=== PATIENT | male | born 1965 | race African-American/Black ===

== ENCOUNTER 2018-03-17 12:08 | Inpatient (IN) | payer OTHER ==
[2018-03-17 16:03] VITALS: BMI 25.8
--- NOTE | 2018-03-17 17:27 | HP ---
CIWA Score Nausea/Vomitin-No Nausea/No Vomiting Muscle Tremors: 3 Anxiety: 4-Mod. Anxious/Guarded Agitation: 3 Paroxysmal Sweats: No Perspiration Orientation: 1-Uncertain about Date Tacttile Disturbances: 2-Mild Itch/Numbness/Burn Auditory Disturbances: 0-None Visual Disturbances: 0-None Headache: 0-None Present CIWA-Ar Total Score: 13 - Admission Criteria OASAS Guidelines: Admission for Medically Managed Detox: Requires at least one of the followin. CIWA greater than 12 2. Seizures within the past 24 hours 3. Delirium tremens within the past 24 hours 4. Hallucinations within the past 24 hours 5. Acute intervention needed for co occurring medical disorder 6. Acute intervention needed for co occurring psychiatric disorder 7. Severe withdrawal that cannot be handled at a lower level of care (continued vomiting, continued diarrhea, abnormal vital signs) requiring intravenous medication and/or fluids 8. Admission ROS [facility] Chief Complaint: ETOH WITHDRAWAL SX/ COCAINE DEPENDENCE. Allergies/Adverse Reactions: Allergies Allergy/AdvReac Type Severity Reaction Status Date / Time No Known Allergies Allergy Verified 03/17/18 17:08 History of Present Illness: PATIENT STARTED DRINKING AT AGE 18 AND CURRENTLY DRINKS UP TO 2- 3 PINTS OF LIQUOR DAILY AND SMOKES 100-200 DOLLARS OF CRACK/COCAINE DAILY. PATIENT HAS H/O BINGE DRINKING AND PASSING OUT. RECENTLY WAS TREATED 03/15/18 AT [facility] FOR C/O PALPITATIONS AND CHEST PAIN. PATIENT D/C HOME AFTER EVALUATION AND CARDIAC STUDIES COMPLETED. PATIENT DENIES HX OF SEIZURES. + DRINKS FIRST UPON GETTING UP IN THE MORNING. PMH INCLUDES HIV+ (1994)-NON-COMPLIANT WITH MEDICATIONS, HTN AND SCHIZOPHRENIA. DENIES SI/HI AND SUICIDE ATTEMPTS. Exam Limitations: No Limitations - Ebola screening Have you traveled outside of the country in the last 21 days: No Have you had contact with anyone from an Ebola affected area: No Have you been sick,other than usual withdrawal symptoms: No - Review of Systems Constitutional: Chills, Night Sweats, Changes in sleep EENT: reports: No Symptoms Reported Respiratory: reports: No Symptoms reported Cardiac: reports: No Symptoms Reported GI: reports: Diarrhea, Nausea, Poor Fluid Intake, Vomiting, Abdominal cramping : reports: No Symptoms Reported Musculoskeletal: reports: No Symptoms Reported Integumentary: reports: Dryness Neuro: reports: Headache, Numbness, Tingling, Tremors Endocrine: reports: No Symptoms Reported Hematology: reports: No Symptoms Reported Psychiatric: reports: Anxious, Depressed Patient History - Patient Medical History Hx Anemia: No Hx Asthma: Yes Hx Chronic Obstructive Pulmonary Disease (COPD): No Hx Cancer: No Hx Cardiac Disorders: No Hx Congestive Heart Failure: No Hx Hypertension: Yes (non-compliant with medication) Hx Hypercholesterolemia: No Hx Pacemaker: No HX Cerebrovascular Accident: No Hx Seizures: No Hx Dementia: No Hx Diabetes: No Hx Gastrointestinal Disorders: No Hx Liver Disease: No Hx Genitourinary Disorders: No Hx Sexually Transmitted Disorders: No Hx Renal Disease (ESRD): No Hx Thyroid Disease: No Hx Human Immunodeficiency Virus (HIV): Yes (noncompliant with medications) Hx Hepatitis C: No Hx Depression: No Hx Suicide Attempt: No Hx Bipolar Disorder: No Hx Schizophrenia: Yes - Patient Surgical History Past Surgical History: Yes Hx Orthopedic Surgery: Yes (LEFT ANKLE SURGERY, PIN PLACEMENT, 1999) Anesthesia Reaction: No - PPD History Previous Implant?: No PPD to be Administered?: Yes - Smoking Cessation Smoking history: Current every day smoker Have you smoked in the past 12 months: Yes Aproximately how many cigarettes per day: 5 Hx Chewing Tobacco Use: No Initiated information on smoking cessation: Yes 'Breaking Loose' booklet given: 03/17/18 - Substance & Tx. History Hx Alcohol Use: Yes Hx Substance Use: Yes Substance Use Type: Alcohol, Cocaine Hx Substance Use Treatment: Yes - Substances Abused Alcohol Route: Oral Frequency: Daily Amount used: 3 PINT Age of first use: 19 Date of Last Use: 03/17/18 Cocaine Route: Smoking Frequency: Daily Amount used: $2000 Age of first use: 19 Date of Last Use: 03/15/18 Family Disease History - Family Disease History Family Disease History: Heart Disease: Mother Admission Physical Exam BHS - Vital Signs Vital Signs: Vital Signs - 24 hr 03/17/18 16:02 Temperature 96.2 F L Pulse Rate 81 Respiratory 20 Rate Blood Pressure 146/113 H - Physical General Appearance: Yes: Appropriately Dressed, Disheveled, Tremorous, Sweating , Anxious HEENTM: Yes: EOMI, Hearing grossly Normal, Normocephalic, Normal Voice, ANITA, Pharynx Normal Respiratory: Yes: Chest Non-Tender, Lungs Clear, Normal Breath Sounds, No Respiratory Distress, No Accessory Muscle Use Neck: Yes: No masses,lesions,Nodules, Supple, Trachea in good position Breast: Yes: Breast Exam Deferred Cardiology: Yes: Regular Rhythm, Regular Rate, S1, S2 Abdominal: Yes: Normal Bowel Sounds, Non Tender, Soft Genitourinary: Yes: Within Normal Limits Back: Yes: Normal Inspection Musculoskeletal: Yes: full range of Motion, Gait Steady Extremities: Yes: Normal Inspection, Normal Range of Motion, Non-Tender, Tremors Neurological: Yes: superintendent greens II-XII NML intact, Fully Oriented, Alert, Motor Strength 5/5, Normal Response, Depressed Affect Integumentary: Yes: Normal Color, Dry, Warm Lymphatic: Yes: Within Normal Limits - Diagnostic (1) Alcohol dependence with uncomplicated withdrawal Current Visit: Yes Status: Acute (2) HTN (hypertension) Current Visit: Yes Status: Chronic Qualifiers: Hypertension type: unspecified Qualified Code(s): I10 - Essential (primary ) hypertension (3) Cocaine dependence Current Visit: Yes Status: Chronic Qualifiers: Substance use status: uncomplicated Qualified Code(s): F14.20 - Cocaine dependence, uncomplicated (4) Tobacco dependence Current Visit: Yes Status: Chronic (5) HIV positive Current Visit: Yes Status: Chronic Cleared for Admission [facility] - Detox or Rehab [facility] Level of Care: Medically Managed Detox Regimen/Protocol: Librium [facility] Breath Alcohol Content Breath Alcohol Content: 0 Urine Drug Screen - Results Drug Screen Negative: No Urine Drug Screen Results: HAWA-Cocaine
[2018-03-17] MEDS ORDERED: hydrOXYzine PAMOATE 50 MG CAPSULE (FP) PO PRN (17:34)
[2018-03-17] MEDS ORDERED: P-EPHED 60MG/TRIPROLIDI 2.5MG TABLET PO PRN (17:34)
[2018-03-17] MEDS ORDERED: guaiFENesin/D-METHORPHAN HB 10 ML UNIT-DOSE CUPS PO PRN (17:34)
[2018-03-17] MEDS ORDERED: ACETAMINOPHEN 325 MG TABLET (FP) PO PRN (17:34)
[2018-03-17] MEDS ORDERED: MENTHOL/PHENOL 1 EACH UD MM PRN (17:34)
[2018-03-17] MEDS ORDERED: NICOTINE POLACRILEX 2 MG GUM BC PRN (17:34)
[2018-03-17] MEDS ORDERED: IBUPROFEN 400 MG TABLET (FP) PO PRN (17:34)
[2018-03-17] MEDS ORDERED: MAGNESIUM CITRATE 300 ML BOTTLE PO PRN (17:34)
[2018-03-17] MEDS ORDERED: MAGNESIUM HYDROX 2400MG/30ML ORAL SUSPENSION 30 ML CUP PO PRN (17:34)
[2018-03-17] MEDS ORDERED: LOPERAMIDE HCL 2 MG CAPSULE PO PRN (17:34)
[2018-03-17] MEDS ORDERED: MAG HYDROX/AL HYDROX/SIMETH 30 ML UNIT-DOSE CUP PO PRN (17:34)
[2018-03-17] MEDS: chlordiazePOXIDE HCL 25 MG CAPSULE PO PRN (18:37)
[2018-03-17] MEDS ORDERED: cloNIDine HCL 0.1 MG TABLET PO ONE (19:30)
--- NOTE | 2018-03-17 19:46 | PN ---
BHS Progress Note Note: Patient hx indicates Norvasc 20 mg Po Daily, however max dose is 10 mg. Will prescribe 10 mg. Patient to f/u w/PCP.
--- NOTE | 2018-03-17 19:58 | PN ---
[facility] Progress Note Note: Pt states he has a h/o asthma and needs a pump- though not documented at admission- MDI ordered
[2018-03-17] MEDS: ALBUTEROL SO4 8 GM HFA INHALER IH PRN (20:18)
[2018-03-17] MEDS ORDERED: MELATONIN 5 MG TABLETS PO PRN (22:00)
[2018-03-17] MEDS: THIAMINE HCL 100 MG TABLET (FP) PO SCH (22:09)
[2018-03-17] MEDS: chlordiazePOXIDE HCL 25 MG CAPSULE PO SCH (22:09)
[2018-03-18] MEDS: ALBUTEROL SO4 8 GM HFA INHALER IH PRN ×3 (01:09→10:44)
[2018-03-18] MEDS: ALBUTEROL SO4 2.5/IPRATROPIUM 0.5 INH SOL 3 ML VIAL.NEB. NEB PRN ×2 (05:00→16:42)
[2018-03-18] MEDS: chlordiazePOXIDE HCL 25 MG CAPSULE PO SCH ×4 (05:39→22:01)
--- NOTE | 2018-03-18 07:47 | PN ---
S Progress Note Note: Patient's blood pressure is B/P 147/114. Patient is asymptomatic Vital Signs Temperature 97.2 F L 03/18/18 06:35 Pulse Rate 98 H 03/18/18 07:36 Respiratory Rate 18 03/18/18 06:35 Blood Pressure 147/114 H 03/18/18 07:36 O2 Sat by Pulse Oximetry (%) Action; Clonidine 0.1mg tablet oral ordered
[2018-03-18] MEDS ORDERED: cloNIDine HCL 0.1 MG TABLET PO ONE (08:02)
[2018-03-18] MEDS ORDERED: ALBUTEROL SO4 0.083% IH SOL 2.5 MG/3 ML VIAL.NEB. NEB ONE (09:14)
[2018-03-18 09:54] LABS: HEMOGLOBIN 12.7 GM/dL (11.7-16.9); MCHC 32.7 g/dl (32.0-35.9); MEAN PLT VOLUME 9.2 fl (7.5-11.1); PLATELET COUNT 221 K/MM3 (134-434); RBC 3.86 M/mm3 (4.00-5.60); RDW 13.5 % (11.9-15.9); WHITE BLOOD COUNT 6.1 K/mm3 (4.0-10.0)
[2018-03-18] MEDS ORDERED: AZITHROMYCIN 250 MG TABLET PO ONE (10:00)
[2018-03-18] MEDS ORDERED: amLODIPine BESYLATE 10 MG TABLET (FP) PO SCH (10:00)
[2018-03-18 10:15] LABS: ALBUMIN 3.8 g/dl (3.4-5.0); ALK PHOS 72 U/L (45-117); ANION GAP 11 MMOL/L (8-16); BILIRUBIN,TOTAL 0.2 mg/dL (0.2-1); BLOOD UREA NITROGEN 16 mg/dL (7-18); CALCIUM 8.7 mg/dL (8.5-10.1); CHLORIDE 103 mmol/L (98-107); CO2 26 mmol/L (21-32); CREATININE 1.2 mg/dL (0.55-1.3); GLUCOSE,RANDOM 99 mg/dL (74-106); POTASSIUM 3.8 mmol/L (3.5-5.1); SGOT/AST 49 U/L (15-37); SGPT/ALT 43 U/L (13-61); SODIUM 140 mmol/L (136-145); TOT PROT 7.1 g/dl (6.4-8.2)
[2018-03-18] MEDS: PRENATAL VITAMINS W/ FOLIC ACID TABLET (FP) PO SCH (10:17)
[2018-03-18] MEDS: amLODIPine BESYLATE 10 MG TABLET (FP) PO SCH (10:17)
[2018-03-18] MEDS: BUDESONIDE/FORMETEROL FUMARATE 80/4.5 mcg INHALER IH SCH ×2 (10:17→22:04)
[2018-03-18] MEDS: SULFAMETHOXAZOLE/TRIMETHOPRIM 800MG/160MG D.S. TABLET PO SCH (10:17)
[2018-03-18] MEDS: NICOTINE 21 MG/24 HOURS TOPICAL PATCH TD SCH (10:21)
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
--- NOTE | 2018-03-18 11:19 | PN ---
[facility] CIWA - CIWA Score Nausea/Vomitin-No Nausea/No Vomiting Muscle Tremors: 3 Anxiety: 2 Agitation: 1-Slight > Activity Paroxysmal Sweats: 2 Orientation: 1-Uncertain about Date Tacttile Disturbances: 1-Very Mild Itch/Numbness Auditory Disturbances: 0-None Visual Disturbances: 0-None Headache: 1-Very Mild CIWA-Ar Total Score: 11 BHS Progress Note (SOAP) Subjective: mild tremor and sweat long history of asthma copd cigarette smoker Objective: 03/18/18 11:22 Vital Signs Temperature 96.6 F L 03/18/18 09:07 Pulse Rate 85 03/18/18 09:07 Respiratory Rate 18 03/18/18 09:07 Blood Pressure 149/99 03/18/18 09:07 O2 Sat by Pulse Oximetry (%) Laboratory Last Values WBC 6.1 K/mm3 (4.0-10.0) 03/18/18 07:00 RBC 3.86 M/mm3 (4.00-5.60) L 03/18/18 07:00 Hgb 12.7 GM/dL (11.7-16.9) 03/18/18 07:00 Hct 39.0 % (35.4-49) 03/18/18 07:00 MCV 101.0 fl (80-96) H 03/18/18 07:00 MCH 33.0 pg (25.7-33.7) 03/18/18 07:00 MCHC 32.7 g/dl (32.0-35.9) 03/18/18 07:00 RDW 13.5 % (11.9-15.9) 03/18/18 07:00 Plt Count 221 K/MM3 (134-434) 03/18/18 07:00 MPV 9.2 fl (7.5-11.1) 03/18/18 07:00 Sodium 140 mmol/L (136-145) 03/18/18 07:00 Potassium 3.8 mmol/L (3.5-5.1) 03/18/18 07:00 Chloride 103 mmol/L (98-107) 03/18/18 07:00 Carbon Dioxide 26 mmol/L (21-32) 03/18/18 07:00 Anion Gap 11 MMOL/L (8-16) 03/18/18 07:00 BUN 16 mg/dL (7-18) 03/18/18 07:00 Creatinine 1.2 mg/dL (0.55-1.3) 03/18/18 07:00 Creat Clearance w eGFR > 60 (>60) 03/18/18 07:00 Random Glucose 99 mg/dL (74-106) 03/18/18 07:00 Calcium 8.7 mg/dL (8.5-10.1) 03/18/18 07:00 Total Bilirubin 0.2 mg/dL (0.2-1) 03/18/18 07:00 AST 49 U/L (15-37) H 03/18/18 07:00 ALT 43 U/L (13-61) 03/18/18 07:00 Alkaline Phosphatase 72 U/L (45-117) 03/18/18 07:00 Total Protein 7.1 g/dl (6.4-8.2) 03/18/18 07:00 Albumin 3.8 g/dl (3.4-5.0) 03/18/18 07:00 lab noted Assessment: 03/18/18 11:23 alcohol withdrawal sx hypertension asthma smoker Plan: continue detox symbicort + nebulizer + azithromycin amlodipine + metoprolol
[2018-03-18] MEDS ORDERED: PNEUMOC 13-VAL CONJ-DIP CRM/PF 0.5 ML DISP.SYRIN IM ONE (12:00)
[2018-03-18] MEDS ORDERED: FLU VACCINE QUAD 60 MCG/0.5 ML (MDV 18-19) IM ONE (12:00)
[2018-03-18] MEDS: FLUoxetine HCL 20 MG CAPSULE (FP) PO SCH (12:39)
[2018-03-18] MEDS: METOPROLOL TARTRATE 25 MG TABLET (FP) PO SCH ×2 (12:39→22:02)
[2018-03-18] MEDS: THIAMINE HCL 100 MG TABLET (FP) PO SCH (22:02)
[2018-03-18] MEDS: traZODone HCL 50 MG TABLET (FP) PO SCH (22:02)
[2018-03-19] MEDS: chlordiazePOXIDE HCL 25 MG CAPSULE PO SCH ×3 (05:26→17:26)
[2018-03-19] MEDS: AZITHROMYCIN 250 MG TABLET PO SCH (10:30)
[2018-03-19] MEDS: METOPROLOL TARTRATE 25 MG TABLET (FP) PO SCH ×2 (10:30→22:17)
[2018-03-19] MEDS: SULFAMETHOXAZOLE/TRIMETHOPRIM 800MG/160MG D.S. TABLET PO SCH (10:30)
[2018-03-19] MEDS: amLODIPine BESYLATE 10 MG TABLET (FP) PO SCH (10:31)
[2018-03-19] MEDS: PRENATAL VITAMINS W/ FOLIC ACID TABLET (FP) PO SCH (10:31)
[2018-03-19] MEDS: NICOTINE 21 MG/24 HOURS TOPICAL PATCH TD SCH (10:31)
[2018-03-19] MEDS: BUDESONIDE/FORMETEROL FUMARATE 80/4.5 mcg INHALER IH SCH ×2 (10:32→22:16)
[2018-03-19] MEDS: FLUoxetine HCL 20 MG CAPSULE (FP) PO SCH (10:33)
[2018-03-19] MEDS: ALBUTEROL SO4 8 GM HFA INHALER IH PRN ×3 (10:35→16:44)
--- NOTE | 2018-03-19 11:27 | PN ---
S CIWA - CIWA Score Nausea/Vomitin-No Nausea/No Vomiting Muscle Tremors: 3 Anxiety: 2 Agitation: 2 Paroxysmal Sweats: 1-Minimal Palms Moist Orientation: 0-Oriented Tacttile Disturbances: 0-None Auditory Disturbances: 0-None Visual Disturbances: 0-None Headache: 0-None Present CIWA-Ar Total Score: 8 BHS Progress Note (SOAP) Subjective: tremor sweat restlessness anxiety Objective: 03/19/18 11:26 Vital Signs Temperature 96.8 F L 03/19/18 09:33 Pulse Rate 79 03/19/18 09:33 Respiratory Rate 18 03/19/18 09:33 Blood Pressure 137/90 03/19/18 09:33 O2 Sat by Pulse Oximetry (%) Laboratory Last Values WBC 6.1 K/mm3 (4.0-10.0) 03/18/18 07:00 RBC 3.86 M/mm3 (4.00-5.60) L 03/18/18 07:00 Hgb 12.7 GM/dL (11.7-16.9) 03/18/18 07:00 Hct 39.0 % (35.4-49) 03/18/18 07:00 MCV 101.0 fl (80-96) H 03/18/18 07:00 MCH 33.0 pg (25.7-33.7) 03/18/18 07:00 MCHC 32.7 g/dl (32.0-35.9) 03/18/18 07:00 RDW 13.5 % (11.9-15.9) 03/18/18 07:00 Plt Count 221 K/MM3 (134-434) 03/18/18 07:00 MPV 9.2 fl (7.5-11.1) 03/18/18 07:00 Sodium 140 mmol/L (136-145) 03/18/18 07:00 Potassium 3.8 mmol/L (3.5-5.1) 03/18/18 07:00 Chloride 103 mmol/L (98-107) 03/18/18 07:00 Carbon Dioxide 26 mmol/L (21-32) 03/18/18 07:00 Anion Gap 11 MMOL/L (8-16) 03/18/18 07:00 BUN 16 mg/dL (7-18) 03/18/18 07:00 Creatinine 1.2 mg/dL (0.55-1.3) 03/18/18 07:00 Creat Clearance w eGFR > 60 (>60) 03/18/18 07:00 Random Glucose 99 mg/dL (74-106) 03/18/18 07:00 Calcium 8.7 mg/dL (8.5-10.1) 03/18/18 07:00 Total Bilirubin 0.2 mg/dL (0.2-1) 03/18/18 07:00 AST 49 U/L (15-37) H 03/18/18 07:00 ALT 43 U/L (13-61) 03/18/18 07:00 Alkaline Phosphatase 72 U/L (45-117) 03/18/18 07:00 Total Protein 7.1 g/dl (6.4-8.2) 03/18/18 07:00 Albumin 3.8 g/dl (3.4-5.0) 03/18/18 07:00 RPR Titer Nonreactive (NONREACTIVE) 03/18/18 07:00 lab noted Assessment: 03/19/18 11:27 withdrawal sx Plan: continue detox
[2018-03-19] MEDS: ALBUTEROL SO4 2.5/IPRATROPIUM 0.5 INH SOL 3 ML VIAL.NEB. NEB PRN ×2 (12:40→19:50)
[2018-03-19] MEDS: chlordiazePOXIDE HCL 25 MG CAPSULE PO PRN (14:37)
[2018-03-19] MEDS: chlordiazePOXIDE 5 MG CAPSULE PO SCH (22:16)
[2018-03-19] MEDS: THIAMINE HCL 100 MG TABLET (FP) PO SCH (22:17)
[2018-03-19] MEDS: traZODone HCL 50 MG TABLET (FP) PO SCH (22:17)
[2018-03-20] MEDS: chlordiazePOXIDE 5 MG CAPSULE PO SCH ×3 (05:35→18:08)
[2018-03-20] MEDS: amLODIPine BESYLATE 10 MG TABLET (FP) PO SCH (10:55)
[2018-03-20] MEDS: PRENATAL VITAMINS W/ FOLIC ACID TABLET (FP) PO SCH (10:55)
[2018-03-20] MEDS: SULFAMETHOXAZOLE/TRIMETHOPRIM 800MG/160MG D.S. TABLET PO SCH (10:55)
[2018-03-20] MEDS: FLUoxetine HCL 20 MG CAPSULE (FP) PO SCH (10:55)
[2018-03-20] MEDS: AZITHROMYCIN 250 MG TABLET PO SCH (10:55)
[2018-03-20] MEDS: METOPROLOL TARTRATE 25 MG TABLET (FP) PO SCH ×2 (10:57→22:03)
[2018-03-20] MEDS: NICOTINE 21 MG/24 HOURS TOPICAL PATCH TD SCH (10:57)
[2018-03-20] MEDS: BUDESONIDE/FORMETEROL FUMARATE 80/4.5 mcg INHALER IH SCH ×2 (11:00→22:02)
--- NOTE | 2018-03-20 13:33 | PN ---
S Progress Note (SOAP) Subjective: feeling better no tremor no gi distress less sweat Objective: 03/20/18 13:32 Vital Signs Temperature 97.0 F L 03/20/18 08:55 Pulse Rate 74 03/20/18 08:55 Respiratory Rate 18 03/20/18 08:55 Blood Pressure 125/91 03/20/18 08:55 O2 Sat by Pulse Oximetry (%) Laboratory Last Values WBC 6.1 K/mm3 (4.0-10.0) 03/18/18 07:00 RBC 3.86 M/mm3 (4.00-5.60) L 03/18/18 07:00 Hgb 12.7 GM/dL (11.7-16.9) 03/18/18 07:00 Hct 39.0 % (35.4-49) 03/18/18 07:00 MCV 101.0 fl (80-96) H 03/18/18 07:00 MCH 33.0 pg (25.7-33.7) 03/18/18 07:00 MCHC 32.7 g/dl (32.0-35.9) 03/18/18 07:00 RDW 13.5 % (11.9-15.9) 03/18/18 07:00 Plt Count 221 K/MM3 (134-434) 03/18/18 07:00 MPV 9.2 fl (7.5-11.1) 03/18/18 07:00 Sodium 140 mmol/L (136-145) 03/18/18 07:00 Potassium 3.8 mmol/L (3.5-5.1) 03/18/18 07:00 Chloride 103 mmol/L (98-107) 03/18/18 07:00 Carbon Dioxide 26 mmol/L (21-32) 03/18/18 07:00 Anion Gap 11 MMOL/L (8-16) 03/18/18 07:00 BUN 16 mg/dL (7-18) 03/18/18 07:00 Creatinine 1.2 mg/dL (0.55-1.3) 03/18/18 07:00 Creat Clearance w eGFR > 60 (>60) 03/18/18 07:00 Random Glucose 99 mg/dL (74-106) 03/18/18 07:00 Calcium 8.7 mg/dL (8.5-10.1) 03/18/18 07:00 Total Bilirubin 0.2 mg/dL (0.2-1) 03/18/18 07:00 AST 49 U/L (15-37) H 03/18/18 07:00 ALT 43 U/L (13-61) 03/18/18 07:00 Alkaline Phosphatase 72 U/L (45-117) 03/18/18 07:00 Total Protein 7.1 g/dl (6.4-8.2) 03/18/18 07:00 Albumin 3.8 g/dl (3.4-5.0) 03/18/18 07:00 RPR Titer Nonreactive (NONREACTIVE) 03/18/18 07:00 lab noted Assessment: 03/20/18 13:33 mild withdrawal sx Plan: medically supervised detox patient pull security alarm today multidisciplinary approach safety contract signed patient is receptive toward therapeutic environment for withdrawal sx stability
[2018-03-20] MEDS: chlordiazePOXIDE HCL 10 MG CAPSULE PO SCH (22:02)
[2018-03-20] MEDS: THIAMINE HCL 100 MG TABLET (FP) PO SCH (22:03)
[2018-03-20] MEDS: traZODone HCL 50 MG TABLET (FP) PO SCH (22:03)
[2018-03-21] MEDS: chlordiazePOXIDE HCL 10 MG CAPSULE PO SCH ×3 (06:04→18:00)
[2018-03-21] MEDS: ALBUTEROL SO4 2.5/IPRATROPIUM 0.5 INH SOL 3 ML VIAL.NEB. NEB PRN (06:59)
[2018-03-21] MEDS: FLUoxetine HCL 20 MG CAPSULE (FP) PO SCH (09:32)
[2018-03-21] MEDS: AZITHROMYCIN 250 MG TABLET PO SCH (09:33)
[2018-03-21] MEDS: METOPROLOL TARTRATE 25 MG TABLET (FP) PO SCH (09:33)
[2018-03-21] MEDS: NICOTINE 21 MG/24 HOURS TOPICAL PATCH TD SCH (09:33)
[2018-03-21] MEDS: BUDESONIDE/FORMETEROL FUMARATE 80/4.5 mcg INHALER IH SCH (09:33)
[2018-03-21] MEDS: PRENATAL VITAMINS W/ FOLIC ACID TABLET (FP) PO SCH (09:33)
[2018-03-21] MEDS: SULFAMETHOXAZOLE/TRIMETHOPRIM 800MG/160MG D.S. TABLET PO SCH (09:33)
[2018-03-21] MEDS: amLODIPine BESYLATE 10 MG TABLET (FP) PO SCH (09:33)
--- NOTE | 2018-03-21 09:43 | PN ---
BHS Progress Note (SOAP) Subjective: I'M better going to rehab Objective: 03/21/18 09:42 Vital Signs Temperature 97.3 F L 03/21/18 06:00 Pulse Rate 63 03/21/18 06:00 Respiratory Rate 18 03/21/18 06:00 Blood Pressure 133/91 03/21/18 06:00 O2 Sat by Pulse Oximetry (%) Laboratory Tests 03/18/18 03/18/18 03/18/18 07:00 07:00 07:00 WBC 6.1 RBC 3.86 L Hgb 12.7 Hct 39.0 MCV 101.0 H MCH 33.0 MCHC 32.7 RDW 13.5 Plt Count 221 MPV 9.2 Sodium 140 Potassium 3.8 Chloride 103 Carbon Dioxide 26 Anion Gap 11 BUN 16 Creatinine 1.2 Creat Clearance w eGFR > 60 Random Glucose 99 Calcium 8.7 Total Bilirubin 0.2 AST 49 H ALT 43 Alkaline Phosphatase 72 Total Protein 7.1 Albumin 3.8 RPR Titer Nonreactive pt aox3 in nad ambulating well Assessment: 03/21/18 09:42 detox completed Plan: cont. fluids d/c from detox [facility]
--- NOTE | 2018-03-21 09:45 | DS ---
[facility] Detox Discharge Summary Admission Date: 03/17/18 Discharge Date: 03/21/18 - History Present History: Alcohol Dependence, Cocaine Dependence - Physical Exam Results Vital Signs: Vital Signs Temperature 97.3 F L 03/21/18 06:00 Pulse Rate 63 03/21/18 06:00 Respiratory Rate 18 03/21/18 06:00 Blood Pressure 133/91 03/21/18 06:00 O2 Sat by Pulse Oximetry (%) - Treatment Hospital Course: Detox Protocol Followed, Detoxed Safely, Responded well, Discharged Condition Good - Medication Discharge Medications: Ambulatory Orders Amlodipine Besylate [Norvasc -] 20 mg PO DAILY 03/17/18 Dolutegravir Sodium [Tivicay] 50 mg PO DAILY 03/17/18 Fluoxetine HCl [Prozac] 10 mg PO DAILY 03/17/18 Ritonavir [Norvir -] 100 mg PO DAILY 03/17/18 Sulfamethoxazole/Trimethoprim [Bactrim DS -] 1 tab PO DAILY 03/17/18 traZODone HCL [Trazodone HCl] 50 mg PO HS 03/17/18 - Diagnosis (1) Alcohol dependence with uncomplicated withdrawal Current Visit: Yes Status: Chronic (2) Cocaine dependence Current Visit: Yes Status: Chronic Qualifiers: Substance use status: uncomplicated Qualified Code(s): F14.20 - Cocaine dependence, uncomplicated (3) HIV positive Current Visit: Yes Status: Chronic (4) HTN (hypertension) Current Visit: Yes Status: Chronic Qualifiers: Hypertension type: unspecified Qualified Code(s): I10 - Essential (primary ) hypertension (5) Tobacco dependence Current Visit: Yes Status: Chronic - AMA Did Patient Leave Against Medical Advice: No
[2018-03-21 17:58] VITALS: BP 139/97; PULSE 66; TEMP 97.5
[2018-03-21] MEDS: ALBUTEROL SO4 8 GM HFA INHALER IH PRN (18:55)
== END 2018-03-21 19:27 | disposition other institution (70) | DRG 774 ==
LOC: YASAS 12:08 → Y6N 17:57
PROC: HZ2ZZZZ Detoxification Services for Substance Abuse Treatment (ICD-10-PCS; principal; 2018-03-17)
DX: F10.230 Alcohol dependence with withdrawal, uncomplicated (principal); F14.20 Cocaine dependence, uncomplicated; F17.213 Nicotine dependence, cigarettes, with withdrawal; F19.282 Other psychoactive substance dependence with psychoactive substance-induced sleep disorder; F19.24 Other psychoactive substance dependence with psychoactive substance-induced mood disorder; Z21 Asymptomatic human immunodeficiency virus [HIV] infection status; I10 Essential (primary) hypertension; J45.909 Unspecified asthma, uncomplicated; J44.9 Chronic obstructive pulmonary disease, unspecified; Z91.14 Patient's other noncompliance with medication regimen
CPT/HCPCS: 36415; 80053; 85027; 86593; 90670; 90688; 94640; G0008; G0009; J0735

== ENCOUNTER 2018-11-27 08:58 | Inpatient (IN) | payer OTHER ==
[2018-11-27 09:34] VITALS: BMI 25.8
--- NOTE | 2018-11-27 10:33 | HP ---
CIWA Score Nausea/Vomitin-No Nausea/No Vomiting Muscle Tremors: 1-None Visible, but [place] Anxiety: 1-Mildly Anxious Agitation: 0-Normal Activity Paroxysmal Sweats: No Perspiration Orientation: 0-Oriented Tacttile Disturbances: 0-None Auditory Disturbances: 0-None Visual Disturbances: 0-None Headache: 0-None Present CIWA-Ar Total Score: 2 - Admission Criteria OASAS Guidelines: Admission for Medically Managed Detox: Requires at least one of the followin. CIWA greater than 12 2. Seizures within the past 24 hours 3. Delirium tremens within the past 24 hours 4. Hallucinations within the past 24 hours 5. Acute intervention needed for co occurring medical disorder 6. Acute intervention needed for co occurring psychiatric disorder 7. Severe withdrawal that cannot be handled at a lower level of care (continued vomiting, continued diarrhea, abnormal vital signs) requiring intravenous medication and/or fluids 8. Admission ROS S - [facility] Chief Complaint: " I want to be in detox and get my life together" Allergies/Adverse Reactions: Allergies Allergy/AdvReac Type Severity Reaction Status Date / Time No Known Allergies Allergy Verified 11/27/18 09:13 History of Present Illness: Patient is a 53 year old black male with alcohol dependence, cocain use and marijuana use disorder. Patient states he is drinking 2-3 beers per day, last drank last night. Patient using marijuana daily about $20 per day, Patient using cocaine daily for past 5 days, $20 per day. Patient is smokes ciggarettes about 1/2 PPD, for over 20 years. Last admission was in 03/2018 and he completed detox and rehab and was abstinent for a while. He relapsed in July 2018 and was in stressful relationship. PMHx: HIV Disease and HTN but poorly compliant with both medications Psurg Hx: L Ankle surgery and pins Patient denies any other substances of abuse. Patient denies any legal issues pending. Patient is not homeless, domiciled in the [place]. Exam Limitations: No Limitations - Ebola screening Have you traveled outside of the country in the last 21 days: No Have you had contact with anyone from an Ebola affected area: No Have you been sick,other than usual withdrawal symptoms: No Do you have a fever: No - Review of Systems Constitutional: No Symptoms Reported EENT: reports: No Symptoms Reported Respiratory: reports: No Symptoms reported Cardiac: reports: No Symptoms Reported GI: reports: Diarrhea : reports: No Symptoms Reported Musculoskeletal: reports: No Symptoms Reported, Other (slightly swollen right leg) Integumentary: reports: No Symptoms Reported Neuro: reports: No Symptoms reported Endocrine: reports: No Symptoms Reported Hematology: reports: No Symptoms Reported Psychiatric: reports: Judgement Intact, Mood/Affect Appropiate, Orientated x3 Other Systems: Reviewed and Negative Patient History - Patient Medical History Hx Anemia: No Hx Asthma: Yes (symbicort, albuterol) Hx Chronic Obstructive Pulmonary Disease (COPD): No Hx Cancer: No Hx Cardiac Disorders: No Hx Congestive Heart Failure: No Hx Hypertension: Yes (on norvasc) Hx Hypercholesterolemia: No Hx Pacemaker: No HX Cerebrovascular Accident: No Hx Seizures: No Hx Dementia: No Hx Diabetes: No Hx Gastrointestinal Disorders: No Hx Liver Disease: No Hx Genitourinary Disorders: No Hx Sexually Transmitted Disorders: Yes Hx Renal Disease (ESRD): No Hx Thyroid Disease: No Hx Human Immunodeficiency Virus (HIV): Yes (noncompliant with medications) Hx Hepatitis C: No Hx Depression: Yes Hx Suicide Attempt: No Hx Bipolar Disorder: No Hx Schizophrenia: Yes - Patient Surgical History Past Surgical History: Yes Hx Orthopedic Surgery: Yes (LEFT ANKLE SURGERY, PIN PLACEMENT, 1999) Anesthesia Reaction: No - PPD History Previous Implant?: Yes Documented Results: Negative w/proof Implanted On Prior R Admission?: Yes Date: 03/19/18 Results: 00.00 PPD to be Administered?: No - Reproductive History Patient is a Female of Child Bearing Age (11 -55 yrs old): No - Smoking Cessation Smoking history: Current every day smoker Have you smoked in the past 12 months: Yes Aproximately how many cigarettes per day: 5 Hx Chewing Tobacco Use: No Initiated information on smoking cessation: Yes 'Breaking Loose' booklet given: 11/27/18 - Substances abused Alcohol Substance route: Oral Frequency: 3-6 times per week Amount used: 40 oz 12 pack Age of first use: 17 Date of last use: 11/26/18 Family Disease History - Family Disease History Family Disease History: Heart Disease: Mother (alive but heart disease), Other: Father (unknown), Brother (1 brother, alive and well), Sister (, alive and well) , Son (1 son alive and well), Daughter (3 daughters alive and well) Admission Physical Exam [facility] - Vital Signs Vital Signs: Vital Signs - 24 hr 11/27/18 09:13 Temperature 97.0 F L Pulse Rate 69 Respiratory 16 Rate Blood Pressure 121/86 Cleared for Admission [facility] - Detox or Rehab [facility] Level of Care: Medically Managed Claeared for Rehab Admission: Yes Screened but not Admitted - Documentation of Visit Screened but not Admitted: No Breathalyzer - Breathalyzer Breathalyzer: 0 Vital Signs - Vital Signs Vital signs refused: No Temperature: 97.0 F Temperature source: Oral Pulse Rate: 69 Respiratory Rate: 16 Blood Pressure: 121/86 BP Location: Left Arm Blood Pressure position: Sitting - Height Height: 5 ft 8 in - Weight Weight: 170 lb Weight measurement method: Standing scale - BMI Body Mass Index (BMI): 25.8 - Bowel Function Bowel Movement: Yes Urine Drug Screen - Test Device Lot number: [id number] Expiration date: 08/13/19 - Control Is test valid?: Yes - Results Drug screen NEGATIVE: No Urine drug screen results: THC-Marijuana, HAWA-Cocaine Inpatient Rehab Admission - Rehab Decision to Admit Inpatient rehab admission?: Yes - Initial Determination Are CD services needed?: Yes Free of communicable disease: Yes Not in need of hospitalization: Yes - Rehab Admission Criteria Previous failed treatment: Yes Poor recovery environment: Yes Comorbidities: Yes Lacks judgement: Yes Patient is meeting Inpatient Rehab admission criteria:: Yes
[2018-11-27] MEDS ORDERED: ACETAMINOPHEN 325 MG TABLET (FP) PO PRN (10:48)
[2018-11-27] MEDS ORDERED: P-EPHED 60MG/TRIPROLIDI 2.5MG TABLET PO PRN (10:48)
[2018-11-27] MEDS ORDERED: LOPERAMIDE HCL 2 MG CAPSULE PO PRN (10:48)
[2018-11-27] MEDS ORDERED: MENTHOL/PHENOL 1 EACH UD MM PRN (10:48)
[2018-11-27] MEDS ORDERED: MAGNESIUM CITRATE 300 ML BOTTLE PO PRN (10:48)
[2018-11-27] MEDS ORDERED: IBUPROFEN 400 MG TABLET (FP) PO PRN (10:48)
[2018-11-27] MEDS ORDERED: MAG HYDROX/AL HYDROX/SIMETH 30 ML UNIT-DOSE CUP PO PRN (10:48)
[2018-11-27] MEDS: NICOTINE 7 MG/24 HOURS TOPICAL PATCH TD SCH (12:59)
[2018-11-27 14:51] LABS: HEMATOCRIT 36.5 % (35.4-49); HEMOGLOBIN 12.2 GM/dL (11.7-16.9); MCH 33.4 pg (25.7-33.7); MCHC 33.4 g/dl (32.0-35.9); MEAN PLT VOLUME 9.3 fl (7.5-11.1); PLATELET COUNT 263 K/MM3 (134-434); RBC 3.65 M/mm3 (4.00-5.60); RDW 13.1 % (11.9-15.9); WHITE BLOOD COUNT 5.1 K/mm3 (4.0-10.0)
[2018-11-27 15:11] LABS: ALBUMIN 3.8 g/dl (3.4-5.0); BILIRUBIN,TOTAL 0.2 mg/dL (0.2-1); BLOOD UREA NITROGEN 26.4 mg/dL (7-18); CALCIUM 9.4 mg/dL (8.5-10.1); CREATININE 1.7 mg/dL (0.55-1.3); POTASSIUM 3.1 mmol/L (3.5-5.1); TOT PROT 7.5 g/dl (6.4-8.2)
[2018-11-27] MEDS ORDERED: POTASSIUM CHLORIDE TABS 20 MEQ TABLET.ER (FP) PO ONE (17:15)
[2018-11-27 17:17] LABS: URINE APPEARANCE CLEAR; URINE BILIRUBIN NEGATIVE (NEGATIVE); URINE COLOR YELLOW; URINE GLUCOSE (UA) NEGATIVE (NEGATIVE); URINE KETONE NEGATIVE (NEGATIVE); URINE LEUK ESTERASE NEGATIVE (NEGATIVE); URINE NITRITE NEGATIVE (NEGATIVE); URINE PROTEIN NEGATIVE (NEGATIVE); URINE UROBILINOGEN 0.2 mg/dL (0.2-1.0)
[2018-11-27] MEDS: THIAMINE HCL 100 MG TABLET (FP) PO SCH (21:28)
[2018-11-27] MEDS ORDERED: QUEtiapine FUMARATE 100 MG TABLET (FP) PO ONE (22:00)
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
[2018-11-28] MEDS: EMTRICITABINE/TENOFOV ALAFENAM (DESCOVY) TABLET PO SCH (07:25)
[2018-11-28] MEDS: DOLUTEGRAVIR SODIUM 50 MG TABLET (NON-FORMULARY) PO SCH (07:25)
[2018-11-28] MEDS: PRENATAL VITAMINS W/ FOLIC ACID TABLET (FP) PO SCH (10:29)
[2018-11-28] MEDS: POTASSIUM CHLORIDE TABS 20 MEQ TABLET.ER (FP) PO SCH (10:30)
[2018-11-28] MEDS: amLODIPine BESYLATE 10 MG TABLET (FP) PO SCH (10:30)
[2018-11-28] MEDS: BUDESONIDE/FORMETEROL FUMARATE 160/4.5 mcg INHALER IH SCH ×2 (10:31→21:18)
[2018-11-28] MEDS: NICOTINE 7 MG/24 HOURS TOPICAL PATCH TD SCH (10:31)
[2018-11-28] MEDS: FLUoxetine HCL 20 MG CAPSULE (FP) PO SCH (12:09)
[2018-11-28] MEDS: guaiFENesin 200 MG/10 ML 10 ML UNIT-DOSE CUPS PO PRN (19:10)
[2018-11-28] MEDS: QUEtiapine FUMARATE 100 MG TABLET (FP) PO SCH (21:18)
[2018-11-28] MEDS: THIAMINE HCL 100 MG TABLET (FP) PO SCH (21:20)
[2018-11-28] MEDS ORDERED: FLUoxetine HCL 20 MG CAPSULE (FP) PO ONE (22:00)
[2018-11-29] MEDS: guaiFENesin 200 MG/10 ML 10 ML UNIT-DOSE CUPS PO PRN (06:21)
[2018-11-29] MEDS: ALBUTEROL SO4 8 GM HFA INHALER IH PRN ×3 (07:00→21:19)
[2018-11-29] MEDS: EMTRICITABINE/TENOFOV ALAFENAM (DESCOVY) TABLET PO SCH (07:29)
[2018-11-29] MEDS: DOLUTEGRAVIR SODIUM 50 MG TABLET (NON-FORMULARY) PO SCH (07:30)
[2018-11-29] MEDS: PRENATAL VITAMINS W/ FOLIC ACID TABLET (FP) PO SCH (10:00)
[2018-11-29] MEDS: POTASSIUM CHLORIDE TABS 20 MEQ TABLET.ER (FP) PO SCH (10:00)
[2018-11-29] MEDS: FLUoxetine HCL 20 MG CAPSULE (FP) PO SCH (10:01)
[2018-11-29] MEDS: amLODIPine BESYLATE 10 MG TABLET (FP) PO SCH (10:01)
[2018-11-29] MEDS: BUDESONIDE/FORMETEROL FUMARATE 160/4.5 mcg INHALER IH SCH ×2 (10:01→21:19)
[2018-11-29] MEDS: NICOTINE 7 MG/24 HOURS TOPICAL PATCH TD SCH (10:02)
[2018-11-29] MEDS: THIAMINE HCL 100 MG TABLET (FP) PO SCH (21:19)
[2018-11-29] MEDS: QUEtiapine FUMARATE 100 MG TABLET (FP) PO SCH (21:19)
[2018-11-30] MEDS: ALBUTEROL SO4 8 GM HFA INHALER IH PRN ×2 (06:11→09:56)
[2018-11-30] MEDS: EMTRICITABINE/TENOFOV ALAFENAM (DESCOVY) TABLET PO SCH (07:18)
[2018-11-30] MEDS: DOLUTEGRAVIR SODIUM 50 MG TABLET (NON-FORMULARY) PO SCH (07:18)
[2018-11-30] MEDS: guaiFENesin 200 MG/10 ML 10 ML UNIT-DOSE CUPS PO PRN ×2 (09:54→21:49)
[2018-11-30] MEDS: MAGNESIUM HYDROX 2400MG/30ML ORAL SUSPENSION 30 ML CUP PO PRN (09:54)
[2018-11-30] MEDS: amLODIPine BESYLATE 10 MG TABLET (FP) PO SCH (09:54)
[2018-11-30] MEDS: PRENATAL VITAMINS W/ FOLIC ACID TABLET (FP) PO SCH (09:54)
[2018-11-30] MEDS: POTASSIUM CHLORIDE TABS 20 MEQ TABLET.ER (FP) PO SCH (09:54)
[2018-11-30] MEDS: FLUoxetine HCL 20 MG CAPSULE (FP) PO SCH (09:54)
[2018-11-30] MEDS: BUDESONIDE/FORMETEROL FUMARATE 160/4.5 mcg INHALER IH SCH ×2 (09:56→21:48)
[2018-11-30] MEDS: NICOTINE 7 MG/24 HOURS TOPICAL PATCH TD SCH (09:57)
[2018-11-30] MEDS: QUEtiapine FUMARATE 100 MG TABLET (FP) PO SCH (21:49)
[2018-11-30] MEDS: THIAMINE HCL 100 MG TABLET (FP) PO SCH (21:49)
[2018-12-01] MEDS: DOLUTEGRAVIR SODIUM 50 MG TABLET (NON-FORMULARY) PO SCH (07:05)
[2018-12-01] MEDS: EMTRICITABINE/TENOFOV ALAFENAM (DESCOVY) TABLET PO SCH (07:05)
[2018-12-01] MEDS: POTASSIUM CHLORIDE TABS 20 MEQ TABLET.ER (FP) PO SCH (10:22)
[2018-12-01] MEDS: FLUoxetine HCL 20 MG CAPSULE (FP) PO SCH (10:22)
[2018-12-01] MEDS: PRENATAL VITAMINS W/ FOLIC ACID TABLET (FP) PO SCH (10:22)
[2018-12-01] MEDS: amLODIPine BESYLATE 10 MG TABLET (FP) PO SCH (10:22)
[2018-12-01] MEDS: NICOTINE 7 MG/24 HOURS TOPICAL PATCH TD SCH (10:22)
[2018-12-01] MEDS: BUDESONIDE/FORMETEROL FUMARATE 160/4.5 mcg INHALER IH SCH ×2 (10:23→21:43)
[2018-12-01] MEDS: guaiFENesin 200 MG/10 ML 10 ML UNIT-DOSE CUPS PO PRN ×2 (10:24→21:44)
--- NOTE | 2018-12-01 11:13 | PN ---
[facility] Progress Note Note: Patient evaluated for c/o dry cough and intermittent wheezing. Patient states robitussin helps with symptoms. Patient denies SOB, CP and fever at this time. Laboratory Tests 11/27/18 11/27/18 11/27/18 10:50 10:50 10:50 WBC 5.1 RBC 3.65 L Hgb 12.2 Hct 36.5 MCV 100.0 H MCH 33.4 MCHC 33.4 RDW 13.1 Plt Count 263 MPV 9.3 Sodium 142 Potassium 3.1 L Chloride 106 Carbon Dioxide 28 Anion Gap 8 BUN 26.4 H Creatinine 1.7 H Est GFR (CKD-EPI)AfAm 52.57 Est GFR (CKD-EPI)NonAf 45.36 Random Glucose 124 H Calcium 9.4 Total Bilirubin 0.2 AST 32 ALT 27 Alkaline Phosphatase 88 Total Protein 7.5 Albumin 3.8 Urine Color Urine Appearance Urine pH Ur Specific [place] Urine Protein Urine Glucose (UA) Urine Ketones Urine Blood Urine Nitrite Urine Bilirubin Urine Urobilinogen Ur Leukocyte Esterase RPR Titer Nonreactive 11/27/18 15:30 WBC RBC Hgb Hct MCV MCH MCHC RDW Plt Count MPV Sodium Potassium Chloride Carbon Dioxide Anion Gap BUN Creatinine Est GFR (CKD-EPI)AfAm Est GFR (CKD-EPI)NonAf Random Glucose Calcium Total Bilirubin AST ALT Alkaline Phosphatase Total Protein Albumin Urine Color Yellow Urine Appearance Clear Urine pH 5.0 Ur Specific [place] 1.024 Urine Protein Negative Urine Glucose (UA) Negative Urine Ketones Negative Urine Blood Negative Urine Nitrite Negative Urine Bilirubin Negative Urine Urobilinogen 0.2 Ur Leukocyte Esterase Negative RPR Titer Vital Signs (72 hours) 11/29/18 11/29/18 11/29/18 00:30 03:30 06:49 Temperature 98.4 F Pulse Rate 63 Respiratory 20 18 18 Rate Blood Pressure 133/89 11/29/18 11/30/18 11/30/18 10:29 00:30 03:30 Temperature Pulse Rate 74 Respiratory 20 18 Rate Blood Pressure 121/78 11/30/18 11/30/18 12/01/18 06:40 09:20 00:30 Temperature 97.8 F Pulse Rate 67 80 Respiratory 18 18 Rate Blood Pressure 120/88 128/89 12/01/18 12/01/18 06:00 09:30 Temperature 97.5 F L Pulse Rate 86 72 Respiratory 18 18 Rate Blood Pressure 132/86 152/83 PE: alert and oriented x 3 skin warm and dry neck supple no jvd car s1s2 resp cta bl, no rales or wheezes, Os sats 98% ext full rom, amb ad mayr A/P: cough will continue robitussin as needed encourage oral fluids monitor clinically check cmp as patient has K+ replaced on 11/27/18
[2018-12-01] MEDS: THIAMINE HCL 100 MG TABLET (FP) PO SCH (21:43)
[2018-12-01] MEDS: QUEtiapine FUMARATE 100 MG TABLET (FP) PO SCH (21:43)
[2018-12-02] MEDS: PRENATAL VITAMINS W/ FOLIC ACID TABLET (FP) PO SCH (09:58)
[2018-12-02] MEDS: FLUoxetine HCL 20 MG CAPSULE (FP) PO SCH (09:58)
[2018-12-02] MEDS: amLODIPine BESYLATE 10 MG TABLET (FP) PO SCH (09:58)
[2018-12-02] MEDS: DOLUTEGRAVIR SODIUM 50 MG TABLET (NON-FORMULARY) PO SCH (09:58)
[2018-12-02] MEDS: POTASSIUM CHLORIDE TABS 20 MEQ TABLET.ER (FP) PO SCH (09:58)
[2018-12-02] MEDS: EMTRICITABINE/TENOFOV ALAFENAM (DESCOVY) TABLET PO SCH (09:59)
[2018-12-02] MEDS: NICOTINE 7 MG/24 HOURS TOPICAL PATCH TD SCH (10:01)
[2018-12-02] MEDS: BUDESONIDE/FORMETEROL FUMARATE 160/4.5 mcg INHALER IH SCH ×2 (10:01→21:17)
[2018-12-02] MEDS: MAGNESIUM HYDROX 2400MG/30ML ORAL SUSPENSION 30 ML CUP PO PRN (10:02)
[2018-12-02 12:21] LABS: ALBUMIN 3.8 g/dl (3.4-5.0); BILIRUBIN,TOTAL 0.3 mg/dL (0.2-1); BLOOD UREA NITROGEN 11.7 mg/dL (7-18); CREATININE 1.3 mg/dL (0.55-1.3); POTASSIUM 4.1 mmol/L (3.5-5.1); TOT PROT 7.4 g/dl (6.4-8.2)
[2018-12-02] MEDS: QUEtiapine FUMARATE 100 MG TABLET (FP) PO SCH (21:17)
[2018-12-02] MEDS: THIAMINE HCL 100 MG TABLET (FP) PO SCH (21:17)
[2018-12-02] MEDS: guaiFENesin 200 MG/10 ML 10 ML UNIT-DOSE CUPS PO PRN (21:18)
[2018-12-03] MEDS: ALBUTEROL SO4 8 GM HFA INHALER IH PRN (06:26)
[2018-12-03] MEDS: guaiFENesin 200 MG/10 ML 10 ML UNIT-DOSE CUPS PO PRN (06:28)
[2018-12-03] MEDS: EMTRICITABINE/TENOFOV ALAFENAM (DESCOVY) TABLET PO SCH (07:04)
[2018-12-03] MEDS: DOLUTEGRAVIR SODIUM 50 MG TABLET (NON-FORMULARY) PO SCH (07:04)
[2018-12-03] MEDS: FLUoxetine HCL 20 MG CAPSULE (FP) PO SCH (09:57)
[2018-12-03] MEDS: PRENATAL VITAMINS W/ FOLIC ACID TABLET (FP) PO SCH (09:57)
[2018-12-03] MEDS: NICOTINE 7 MG/24 HOURS TOPICAL PATCH TD SCH (09:57)
[2018-12-03] MEDS: amLODIPine BESYLATE 10 MG TABLET (FP) PO SCH (09:57)
[2018-12-03] MEDS: BUDESONIDE/FORMETEROL FUMARATE 160/4.5 mcg INHALER IH SCH ×2 (09:58→21:07)
[2018-12-03] MEDS: POTASSIUM CHLORIDE TABS 20 MEQ TABLET.ER (FP) PO SCH (09:59)
[2018-12-03] MEDS: QUEtiapine FUMARATE 100 MG TABLET (FP) PO SCH (21:07)
[2018-12-03] MEDS: THIAMINE HCL 100 MG TABLET (FP) PO SCH (21:07)
[2018-12-03] MEDS: MAGNESIUM HYDROX 2400MG/30ML ORAL SUSPENSION 30 ML CUP PO PRN (21:08)
[2018-12-04] MEDS: ALBUTEROL SO4 8 GM HFA INHALER IH PRN (06:17)
[2018-12-04] MEDS: DOLUTEGRAVIR SODIUM 50 MG TABLET (NON-FORMULARY) PO SCH (07:31)
[2018-12-04] MEDS: EMTRICITABINE/TENOFOV ALAFENAM (DESCOVY) TABLET PO SCH (07:31)
[2018-12-04] MEDS: POTASSIUM CHLORIDE TABS 20 MEQ TABLET.ER (FP) PO SCH (09:53)
[2018-12-04] MEDS: NICOTINE 7 MG/24 HOURS TOPICAL PATCH TD SCH (09:56)
[2018-12-04] MEDS: PRENATAL VITAMINS W/ FOLIC ACID TABLET (FP) PO SCH (09:57)
[2018-12-04] MEDS: amLODIPine BESYLATE 10 MG TABLET (FP) PO SCH (09:57)
[2018-12-04] MEDS: BUDESONIDE/FORMETEROL FUMARATE 160/4.5 mcg INHALER IH SCH ×2 (09:57→21:32)
[2018-12-04] MEDS: FLUoxetine HCL 20 MG CAPSULE (FP) PO SCH (09:57)
[2018-12-04] MEDS ORDERED: BENZOCAINE 28 GM HEMORRHOIDAL OINTMENT PR PRN (15:47)
[2018-12-04] MEDS: THIAMINE HCL 100 MG TABLET (FP) PO SCH (21:32)
[2018-12-04] MEDS: DOCUSATE SODIUM 100 MG CAPSULE (FP) PO SCH (21:32)
[2018-12-04] MEDS: QUEtiapine FUMARATE 100 MG TABLET (FP) PO SCH (21:33)
[2018-12-05] MEDS: DOLUTEGRAVIR SODIUM 50 MG TABLET (NON-FORMULARY) PO SCH (07:02)
[2018-12-05] MEDS: EMTRICITABINE/TENOFOV ALAFENAM (DESCOVY) TABLET PO SCH (07:02)
[2018-12-05] MEDS: FLUoxetine HCL 20 MG CAPSULE (FP) PO SCH (10:01)
[2018-12-05] MEDS: amLODIPine BESYLATE 10 MG TABLET (FP) PO SCH (10:01)
[2018-12-05] MEDS: POTASSIUM CHLORIDE TABS 20 MEQ TABLET.ER (FP) PO SCH (10:01)
[2018-12-05] MEDS: PRENATAL VITAMINS W/ FOLIC ACID TABLET (FP) PO SCH (10:01)
[2018-12-05] MEDS: NICOTINE 7 MG/24 HOURS TOPICAL PATCH TD SCH (10:01)
[2018-12-05] MEDS: BUDESONIDE/FORMETEROL FUMARATE 160/4.5 mcg INHALER IH SCH ×2 (10:01→22:52)
[2018-12-05] MEDS: DOCUSATE SODIUM 100 MG CAPSULE (FP) PO SCH (22:52)
[2018-12-05] MEDS: QUEtiapine FUMARATE 100 MG TABLET (FP) PO SCH (22:52)
[2018-12-05] MEDS: THIAMINE HCL 100 MG TABLET (FP) PO SCH (22:52)
[2018-12-06] MEDS: DOLUTEGRAVIR SODIUM 50 MG TABLET (NON-FORMULARY) PO SCH (07:04)
[2018-12-06] MEDS: EMTRICITABINE/TENOFOV ALAFENAM (DESCOVY) TABLET PO SCH (07:04)
[2018-12-06] MEDS: POTASSIUM CHLORIDE TABS 20 MEQ TABLET.ER (FP) PO SCH (10:39)
[2018-12-06] MEDS: FLUoxetine HCL 20 MG CAPSULE (FP) PO SCH (10:39)
[2018-12-06] MEDS: PRENATAL VITAMINS W/ FOLIC ACID TABLET (FP) PO SCH (10:39)
[2018-12-06] MEDS: BUDESONIDE/FORMETEROL FUMARATE 160/4.5 mcg INHALER IH SCH ×2 (10:39→21:54)
[2018-12-06] MEDS: NICOTINE 7 MG/24 HOURS TOPICAL PATCH TD SCH (10:39)
[2018-12-06] MEDS: amLODIPine BESYLATE 10 MG TABLET (FP) PO SCH (10:39)
[2018-12-06] MEDS: THIAMINE HCL 100 MG TABLET (FP) PO SCH (21:54)
[2018-12-06] MEDS: QUEtiapine FUMARATE 100 MG TABLET (FP) PO SCH (21:54)
[2018-12-06] MEDS: DOCUSATE SODIUM 100 MG CAPSULE (FP) PO SCH (21:54)
[2018-12-06] MEDS: MELATONIN 5 MG TABLETS PO PRN (21:55)
[2018-12-07] MEDS: DOLUTEGRAVIR SODIUM 50 MG TABLET (NON-FORMULARY) PO SCH (07:32)
[2018-12-07] MEDS: EMTRICITABINE/TENOFOV ALAFENAM (DESCOVY) TABLET PO SCH (07:32)
[2018-12-07] MEDS: NICOTINE 7 MG/24 HOURS TOPICAL PATCH TD SCH (09:36)
[2018-12-07] MEDS: POTASSIUM CHLORIDE TABS 20 MEQ TABLET.ER (FP) PO SCH (09:36)
[2018-12-07] MEDS: FLUoxetine HCL 20 MG CAPSULE (FP) PO SCH (09:37)
[2018-12-07] MEDS: amLODIPine BESYLATE 10 MG TABLET (FP) PO SCH (09:37)
[2018-12-07] MEDS: PRENATAL VITAMINS W/ FOLIC ACID TABLET (FP) PO SCH (09:37)
[2018-12-07] MEDS: BUDESONIDE/FORMETEROL FUMARATE 160/4.5 mcg INHALER IH SCH ×2 (09:37→22:48)
[2018-12-07] MEDS: DOCUSATE SODIUM 100 MG CAPSULE (FP) PO SCH (21:45)
[2018-12-07] MEDS: QUEtiapine FUMARATE 100 MG TABLET (FP) PO SCH (21:46)
[2018-12-07] MEDS: MELATONIN 5 MG TABLETS PO PRN (21:46)
[2018-12-07] MEDS: THIAMINE HCL 100 MG TABLET (FP) PO SCH (21:46)
[2018-12-08] MEDS: ALBUTEROL SO4 8 GM HFA INHALER IH PRN (06:34)
[2018-12-08] MEDS: EMTRICITABINE/TENOFOV ALAFENAM (DESCOVY) TABLET PO SCH (07:02)
[2018-12-08] MEDS: DOLUTEGRAVIR SODIUM 50 MG TABLET (NON-FORMULARY) PO SCH (07:02)
[2018-12-08] MEDS: NICOTINE 7 MG/24 HOURS TOPICAL PATCH TD SCH (12:46)
[2018-12-08] MEDS: FLUoxetine HCL 20 MG CAPSULE (FP) PO SCH (12:48)
[2018-12-08] MEDS: PRENATAL VITAMINS W/ FOLIC ACID TABLET (FP) PO SCH (12:48)
[2018-12-08] MEDS: amLODIPine BESYLATE 10 MG TABLET (FP) PO SCH (12:48)
[2018-12-08] MEDS: BUDESONIDE/FORMETEROL FUMARATE 160/4.5 mcg INHALER IH SCH ×2 (13:40→21:40)
[2018-12-08] MEDS: THIAMINE HCL 100 MG TABLET (FP) PO SCH (21:39)
[2018-12-08] MEDS: QUEtiapine FUMARATE 100 MG TABLET (FP) PO SCH (21:39)
[2018-12-08] MEDS: DOCUSATE SODIUM 100 MG CAPSULE (FP) PO SCH (21:39)
[2018-12-09] MEDS: ALBUTEROL SO4 8 GM HFA INHALER IH PRN (05:55)
[2018-12-09] MEDS: EMTRICITABINE/TENOFOV ALAFENAM (DESCOVY) TABLET PO SCH (07:05)
[2018-12-09] MEDS: DOLUTEGRAVIR SODIUM 50 MG TABLET (NON-FORMULARY) PO SCH (07:05)
[2018-12-09] MEDS: FLUoxetine HCL 20 MG CAPSULE (FP) PO SCH (09:40)
[2018-12-09] MEDS: amLODIPine BESYLATE 10 MG TABLET (FP) PO SCH (09:40)
[2018-12-09] MEDS: PRENATAL VITAMINS W/ FOLIC ACID TABLET (FP) PO SCH (09:40)
[2018-12-09] MEDS: BUDESONIDE/FORMETEROL FUMARATE 160/4.5 mcg INHALER IH SCH ×2 (09:40→21:25)
[2018-12-09] MEDS: NICOTINE 7 MG/24 HOURS TOPICAL PATCH TD SCH (09:41)
[2018-12-09] MEDS: QUEtiapine FUMARATE 100 MG TABLET (FP) PO SCH (21:25)
[2018-12-09] MEDS: THIAMINE HCL 100 MG TABLET (FP) PO SCH (21:25)
[2018-12-09] MEDS: DOCUSATE SODIUM 100 MG CAPSULE (FP) PO SCH (21:25)
[2018-12-10] MEDS: DOLUTEGRAVIR SODIUM 50 MG TABLET (NON-FORMULARY) PO SCH (07:02)
[2018-12-10] MEDS: EMTRICITABINE/TENOFOV ALAFENAM (DESCOVY) TABLET PO SCH (07:02)
[2018-12-10] MEDS: FLUoxetine HCL 20 MG CAPSULE (FP) PO SCH (09:50)
[2018-12-10] MEDS: BUDESONIDE/FORMETEROL FUMARATE 160/4.5 mcg INHALER IH SCH ×2 (09:50→21:24)
[2018-12-10] MEDS: amLODIPine BESYLATE 10 MG TABLET (FP) PO SCH (09:50)
[2018-12-10] MEDS: PRENATAL VITAMINS W/ FOLIC ACID TABLET (FP) PO SCH (09:50)
[2018-12-10] MEDS: NICOTINE 7 MG/24 HOURS TOPICAL PATCH TD SCH (09:51)
[2018-12-10] MEDS ORDERED: BISACODYL 5 MG TABLET.DR (FP) PO PRN (14:17)
[2018-12-10] MEDS: THIAMINE HCL 100 MG TABLET (FP) PO SCH (21:24)
[2018-12-10] MEDS: QUEtiapine FUMARATE 100 MG TABLET (FP) PO SCH (21:24)
[2018-12-11] MEDS ORDERED: PT OWN MED DRAWER 7, Y5N ONE (03:57)
[2018-12-11] MEDS: EMTRICITABINE/TENOFOV ALAFENAM (DESCOVY) TABLET PO SCH (08:12)
[2018-12-11] MEDS: DOLUTEGRAVIR SODIUM 50 MG TABLET (NON-FORMULARY) PO SCH (08:12)
--- NOTE | 2018-12-11 09:32 | DS ---
[facility] Rehab Discharge Summary - [facility] Rehab Discharge Summary Admission Date: 11/27/18 Discharge Date: 12/15/18 - Discharge Physical Exam Vital Signs: Vital Signs Temperature 98.1 F 12/11/18 06:52 Pulse Rate 63 12/11/18 06:52 Respiratory Rate 18 12/11/18 06:52 Blood Pressure 136/93 12/11/18 06:52 O2 Sat by Pulse Oximetry (%) Pertinent Admission Physical Exam Findings: General: No apparent distress Lungs: clear Heart: s1 S2 audible, regular Abd: +BS, non-tender, non-distended Neurological: CN 2-12 intact, no neurological deficits noted MSK: Full ROM, Full weight bearing, steady gait Skin: color consistent throughout trunk and extremities.s - Treatment Discharge Condition: Outpatient referral accepted Hospital Course: Patient attended groups, was adherent to treatment plan and medication regimen. Patient accepted referral to [facility]. - Medication Discharge Medications: Ambulatory Orders Dolutegravir Sodium [Tivicay] 50 mg PO DAILY 03/17/18 Albuterol Sulfate Inhaler - [Ventolin HFA Inhaler -] 2 puff IH Q4H PRN #1 inhaler 04/10/18 Amlodipine Besylate [Norvasc -] 10 mg PO DAILY 11/27/18 Budesonide/Formeterol Fumarate [SYMBICORT 160/4.5mcg -] 1 inh PO BID 11/27/18 Albuterol Sulfate Inhaler - [Ventolin HFA Inhaler -] 2 puff IH Q4H PRN #1 inhaler 12/11/18 Amlodipine Besylate [Norvasc -] 10 mg PO DAILY 15 Days #15 tablet 12/11/18 Dolutegravir Sodium [Tivicay] 50 mg PO DAILY 15 Days #15 tablet 12/11/18 Emtricitabine/Tenofov Alafenam [Descovy 200-25 mg Tablet (Nf)] 1 each PO DAILY@ 0800 15 Days tablet 12/11/18 Fluoxetine HCl [Prozac] 40 mg PO DAILY #30 cap 12/11/18 Quetiapine Fumarate [Seroquel] 100 mg PO HS #30 tablet 12/11/18 - Medication-Assisted Treatment (MAT) Medication-Assisted Treatment (MAT): No - Discharge Instructions Diet, activity, other medical instructions: Diet: As tolerated Activity: As tolerated Other medical instructions: Follow up with aftercare referral, make appointment with medical provider within 2 weeks of discharge. Take medication as prescribed. - AMA Did Patient Leave Against Medical Advice: No
[2018-12-11] MEDS: BUDESONIDE/FORMETEROL FUMARATE 160/4.5 mcg INHALER IH SCH ×2 (09:58→21:34)
[2018-12-11] MEDS: PRENATAL VITAMINS W/ FOLIC ACID TABLET (FP) PO SCH (09:59)
[2018-12-11] MEDS: FLUoxetine HCL 20 MG CAPSULE (FP) PO SCH (09:59)
[2018-12-11] MEDS: NICOTINE 7 MG/24 HOURS TOPICAL PATCH TD SCH (09:59)
[2018-12-11] MEDS: amLODIPine BESYLATE 10 MG TABLET (FP) PO SCH (09:59)
--- NOTE | 2018-12-11 17:03 | PN ---
[facility] Progress Note Note: Patient is scheduled for discharge tomorrow. Scripts for 30 days supply of medications(Prozac 40 mg/day, Seroquel 100 mg/hs) will be electronically transmitted to [facility] at [address] [place] [id number]
[2018-12-11] MEDS: THIAMINE HCL 100 MG TABLET (FP) PO SCH (21:34)
[2018-12-11] MEDS: QUEtiapine FUMARATE 100 MG TABLET (FP) PO SCH (21:34)
[2018-12-12 07:00] VITALS: BP 134/88; PULSE 68; TEMP 97.6
[2018-12-12] MEDS: EMTRICITABINE/TENOFOV ALAFENAM (DESCOVY) TABLET PO SCH (07:01)
[2018-12-12] MEDS: DOLUTEGRAVIR SODIUM 50 MG TABLET (NON-FORMULARY) PO SCH (07:01)
[2018-12-12] MEDS: ALBUTEROL SO4 8 GM HFA INHALER IH PRN (07:01)
--- NOTE | 2018-12-12 09:15 | DS ---
[facility] Rehab Discharge Summary - [facility] Rehab Discharge Summary Admission Date: 11/27/18 Discharge Date: 12/12/18 - History Present History: Alcohol dependence, Cocaine dependence - Discharge Physical Exam Vital Signs: Vital Signs Temperature 97.6 F 12/12/18 07:00 Pulse Rate 68 12/12/18 07:00 Respiratory Rate 18 12/12/18 07:00 Blood Pressure 134/88 12/12/18 07:00 O2 Sat by Pulse Oximetry (%) Pertinent Admission Physical Exam Findings: alert and oriented x 3 skin warm and dry neck supple, no jvd car s1s2 resp cta ext full rom, amb ad mary - Treatment Discharge Condition: Discharge condition good Hospital Course: Patient completed discharge and was able to attain rehab goals. Patient attended group meetings, identified positive coping mechanisms and is motivated to maintain sobriety. Patient remained medically stable during course of admission and denies SI/HI at this time. - Medication Discharge Medications: Ambulatory Orders Dolutegravir Sodium [Tivicay] 50 mg PO DAILY 03/17/18 Albuterol Sulfate Inhaler - [Ventolin HFA Inhaler -] 2 puff IH Q4H PRN #1 inhaler 04/10/18 Amlodipine Besylate [Norvasc -] 10 mg PO DAILY 11/27/18 Budesonide/Formeterol Fumarate [SYMBICORT 160/4.5mcg -] 1 inh PO BID 11/27/18 Albuterol Sulfate Inhaler - [Ventolin HFA Inhaler -] 2 puff IH Q4H PRN #1 inhaler 12/11/18 Amlodipine Besylate [Norvasc -] 10 mg PO DAILY 15 Days #15 tablet 12/11/18 Dolutegravir Sodium [Tivicay] 50 mg PO DAILY 15 Days #15 tablet 12/11/18 Emtricitabine/Tenofov Alafenam [Descovy 200-25 mg Tablet (Nf)] 1 each PO DAILY@ 0800 15 Days tablet 12/11/18 Fluoxetine HCl [Prozac] 40 mg PO DAILY #30 cap 12/11/18 Quetiapine Fumarate [Seroquel] 100 mg PO HS #30 tablet 12/11/18 - Medication-Assisted Treatment (MAT) Medication-Assisted Treatment (MAT): No - Discharge Instructions Diet, activity, other medical instructions: Diet: Activity: Other medical instructions: - Follow-up Referral Minutes to complete discharge: 30 (aftercare arranged for aCndelario Stahl Patient to make own appointment/walk in 12/16/18) - AMA Did Patient Leave Against Medical Advice: No
[2018-12-12] MEDS: amLODIPine BESYLATE 10 MG TABLET (FP) PO SCH (09:26)
[2018-12-12] MEDS: FLUoxetine HCL 20 MG CAPSULE (FP) PO SCH (09:26)
[2018-12-12] MEDS: PRENATAL VITAMINS W/ FOLIC ACID TABLET (FP) PO SCH (09:27)
[2018-12-12] MEDS: BUDESONIDE/FORMETEROL FUMARATE 160/4.5 mcg INHALER IH SCH (09:28)
[2018-12-12] MEDS: NICOTINE 7 MG/24 HOURS TOPICAL PATCH TD SCH (09:28)
== END 2018-12-12 09:35 | disposition home or self-care (01) | DRG 772 ==
LOC: YASAS 08:58 → Y3W 11:46
PROVIDERS: ADMIT Neuromusculoskeletal Medicine & OMM; ATTEND Neuromusculoskeletal Medicine & OMM
PROC: HZ42ZZZ Group Counseling for Substance Abuse Treatment, Cognitive-Behavioral (ICD-10-PCS; principal; 2018-11-27)
DX: F10.20 Alcohol dependence, uncomplicated (principal); F14.20 Cocaine dependence, uncomplicated; F17.210 Nicotine dependence, cigarettes, uncomplicated; F19.282 Other psychoactive substance dependence with psychoactive substance-induced sleep disorder; Z21 Asymptomatic human immunodeficiency virus [HIV] infection status; I10 Essential (primary) hypertension; J45.20 Mild intermittent asthma, uncomplicated; R05 Cough
CPT/HCPCS: 36415; 80053; 81003; 85027; 86593

== ENCOUNTER 2021-09-15 17:08 | Inpatient (IN) | payer OTHER ==
[2021-09-15 19:32] VITALS: BMI 26.4
[2021-09-15] MEDS ORDERED: ACETAMINOPHEN 325 MG TABLET (FP) PO PRN (20:13)
[2021-09-15] MEDS ORDERED: IBUPROFEN 400 MG TABLET (FP) PO PRN (20:13)
[2021-09-15] MEDS ORDERED: MAGNESIUM HYDROX 2400MG/30ML ORAL SUSPENSION 30 ML CUP PO PRN (20:13)
[2021-09-15] MEDS ORDERED: LOPERAMIDE HCL 2 MG CAPSULE PO PRN (20:13)
[2021-09-15] MEDS ORDERED: NICOTINE 10 MG CARTRIDGE (INHALER) IH PRN (20:13)
[2021-09-15] MEDS ORDERED: P-EPHED 60MG/TRIPROLIDI 2.5MG TABLET PO PRN (20:13)
[2021-09-15] MEDS ORDERED: guaiFENesin 200 MG/10 ML 10 ML UNIT-DOSE CUPS PO PRN (20:13)
[2021-09-15] MEDS ORDERED: MAG HYDROX/AL HYDROX/SIMETH 30 ML UNIT-DOSE CUP PO PRN (20:13)
[2021-09-15] MEDS ORDERED: MAGNESIUM CITRATE 300 ML BOTTLE PO PRN (20:13)
[2021-09-15] MEDS ORDERED: NALOXONE HCL (KLOXXADO) 8 MG SPRAY NS PRN (20:13)
[2021-09-16] MEDS ORDERED: TUBERCULIN PPD 5 TU/0.1ML VIAL ID ONE (01:42)
[2021-09-16] MEDS: MELATONIN 5 MG TABLETS PO SCH ×2 (02:00→21:23)
[2021-09-16] MEDS: hydrOXYzine PAMOATE 25 MG CAPSULE (FP) PO SCH ×6 (02:00→21:23)
[2021-09-16] MEDS: NICOTINE 21 MG/24 HOURS TOPICAL PATCH TD SCH ×2 (02:05→10:06)
[2021-09-16] MEDS: THIAMINE HCL 100 MG TABLET (FP) PO SCH ×2 (02:06→21:23)
[2021-09-16] MEDS: PRENATAL VITAMINS W/ FOLIC ACID TABLET (FP) PO SCH (10:05)
[2021-09-16] MEDS: ESCITALOPRAM OXALATE 10 MG TABLET PO SCH (10:07)
[2021-09-16 10:36] LABS: HEMATOCRIT 36.3 % (35.4-49); HEMOGLOBIN 12.3 GM/dL (11.7-16.9); MCH 34.4 pg (25.7-33.7); MCHC 33.9 g/dl (32.0-35.9); MEAN CELL VOLUME 101.4 fl (80-96); MEAN PLT VOLUME 8.3 fl (7.5-11.1); PLATELET COUNT 279 10^3/uL (134-434); RBC 3.58 M/mm3 (4.00-5.60); RDW 13.2 % (11.9-15.9); WHITE BLOOD COUNT 4.3 K/mm3 (4.0-10.0)
[2021-09-16 10:42] LABS: EPI CELLS 8 /uL (0-25.1); HYALINE CASTS 1 /uL (0-3.1); PH,URINE 5.5 (5.0-8.0); URINE APPEARANCE CLEAR; URINE BACTERIA 20 /uL (0-1359); URINE BILIRUBIN NEGATIVE (NEGATIVE); URINE COLOR YELLOW; URINE GLUCOSE (UA) NEGATIVE (NEGATIVE); URINE KETONE TRACE (NEGATIVE); URINE LEUK ESTERASE TRACE (NEGATIVE); URINE NITRITE NEGATIVE (NEGATIVE); URINE PROTEIN NEGATIVE (NEGATIVE); URINE RBC 3 /uL (0-23.9); URINE UROBILINOGEN 0.2 mg/dL (0.2-1.0); URINE WBC 36 /uL (0-25.8)
[2021-09-16 10:49] LABS: ALBUMIN 3.9 g/dl (3.4-5.0); BLOOD UREA NITROGEN 22.6 mg/dL (7-18)
[2021-09-16 10:53] LABS: CREATININE 1.9 mg/dL (0.55-1.3)
[2021-09-16 10:54] LABS: BILIRUBIN,TOTAL 0.7 mg/dL (0.2-1)
[2021-09-16] MEDS: QUEtiapine FUMARATE 100 MG TABLET (FP) PO SCH (21:23)
[2021-09-16] MEDS: ALBUTEROL SO4 HFA INHALER IH PRN (21:24)
[2021-09-17] MEDS: hydrOXYzine PAMOATE 25 MG CAPSULE (FP) PO SCH ×5 (06:48→21:32)
[2021-09-17] MEDS: PRENATAL VITAMINS W/ FOLIC ACID TABLET (FP) PO SCH (10:05)
[2021-09-17] MEDS: ESCITALOPRAM OXALATE 10 MG TABLET PO SCH (10:06)
[2021-09-17] MEDS: NICOTINE 21 MG/24 HOURS TOPICAL PATCH TD SCH (10:06)
[2021-09-17] MEDS: ALBUTEROL SO4 HFA INHALER IH PRN ×2 (14:25→17:28)
[2021-09-17] MEDS: MELATONIN 5 MG TABLETS PO SCH (21:32)
[2021-09-17] MEDS: THIAMINE HCL 100 MG TABLET (FP) PO SCH (21:32)
[2021-09-17] MEDS: QUEtiapine FUMARATE 100 MG TABLET (FP) PO SCH (21:32)
[2021-09-18] MEDS: hydrOXYzine PAMOATE 25 MG CAPSULE (FP) PO SCH ×2 (05:56→09:32)
[2021-09-18] MEDS: PRENATAL VITAMINS W/ FOLIC ACID TABLET (FP) PO SCH (09:32)
[2021-09-18] MEDS: ESCITALOPRAM OXALATE 10 MG TABLET PO SCH (09:32)
[2021-09-18] MEDS: NICOTINE 21 MG/24 HOURS TOPICAL PATCH TD SCH (09:33)
[2021-09-18] MEDS: ALBUTEROL SO4 HFA INHALER IH PRN (09:34)
[2021-09-18] MEDS: BUDESONIDE/FORMETEROL FUMARATE 160/4.5 mcg INHALER IH SCH ×2 (11:58→21:41)
[2021-09-18] MEDS: CHLORTHALIDONE 25 MG TABLET PO SCH (11:58)
[2021-09-18] MEDS: BICTEGRAV/EMTRICIT/TENOFOV (BIKTARVY) 50-200-25 MG TABLET PO SCH (11:58)
[2021-09-18] MEDS: amLODIPine BESYLATE 10 MG TABLET (FP) PO SCH (11:58)
[2021-09-18] MEDS: QUEtiapine FUMARATE 100 MG TABLET (FP) PO SCH (21:41)
[2021-09-18] MEDS: THIAMINE HCL 100 MG TABLET (FP) PO SCH (21:41)
[2021-09-18] MEDS: MELATONIN 5 MG TABLETS PO SCH (21:41)
[2021-09-18] MEDS: ATORVASTATIN CA 10 MG TABLET (FP) PO SCH (21:42)
[2021-09-19] MEDS: BICTEGRAV/EMTRICIT/TENOFOV (BIKTARVY) 50-200-25 MG TABLET PO SCH (10:38)
[2021-09-19] MEDS: PRENATAL VITAMINS W/ FOLIC ACID TABLET (FP) PO SCH (10:38)
[2021-09-19] MEDS: ESCITALOPRAM OXALATE 10 MG TABLET PO SCH (10:39)
[2021-09-19] MEDS: amLODIPine BESYLATE 10 MG TABLET (FP) PO SCH (10:39)
[2021-09-19] MEDS: CHLORTHALIDONE 25 MG TABLET PO SCH (10:39)
[2021-09-19] MEDS: BUDESONIDE/FORMETEROL FUMARATE 160/4.5 mcg INHALER IH SCH ×2 (10:39→21:19)
[2021-09-19] MEDS: NICOTINE 21 MG/24 HOURS TOPICAL PATCH TD SCH (10:40)
[2021-09-19] MEDS ORDERED: ACAMPROSATE CALCIUM 333 MG TABLET.DR PO SCH (14:00)
[2021-09-19] MEDS: ACAMPROSATE CALCIUM 333 MG TABLET.DR PO SCH ×2 (15:34→21:17)
[2021-09-19] MEDS: THIAMINE HCL 100 MG TABLET (FP) PO SCH (21:17)
[2021-09-19] MEDS: QUEtiapine FUMARATE 100 MG TABLET (FP) PO SCH (21:17)
[2021-09-19] MEDS: MELATONIN 5 MG TABLETS PO SCH (21:17)
[2021-09-19] MEDS: ATORVASTATIN CA 10 MG TABLET (FP) PO SCH (21:17)
[2021-09-20] MEDS: ACAMPROSATE CALCIUM 333 MG TABLET.DR PO SCH ×3 (07:01→21:32)
[2021-09-20] MEDS: CHLORTHALIDONE 25 MG TABLET PO SCH (10:15)
[2021-09-20] MEDS: NICOTINE 21 MG/24 HOURS TOPICAL PATCH TD SCH (10:15)
[2021-09-20] MEDS: PRENATAL VITAMINS W/ FOLIC ACID TABLET (FP) PO SCH (10:15)
[2021-09-20] MEDS: BICTEGRAV/EMTRICIT/TENOFOV (BIKTARVY) 50-200-25 MG TABLET PO SCH (10:16)
[2021-09-20] MEDS: amLODIPine BESYLATE 10 MG TABLET (FP) PO SCH (10:16)
[2021-09-20] MEDS: BUDESONIDE/FORMETEROL FUMARATE 160/4.5 mcg INHALER IH SCH ×2 (10:16→21:34)
[2021-09-20] MEDS: ESCITALOPRAM OXALATE 10 MG TABLET PO SCH (10:16)
[2021-09-20 10:58] LABS: ALBUMIN 3.8 g/dl (3.4-5.0); BLOOD UREA NITROGEN 13.2 mg/dL (7-18); CALCIUM 9.7 mg/dL (8.5-10.1)
[2021-09-20 11:01] LABS: CREATININE 1.4 mg/dL (0.55-1.3)
[2021-09-20 11:03] LABS: BILIRUBIN,TOTAL 0.4 mg/dL (0.2-1); TOT PROT 7.9 g/dl (6.4-8.2)
[2021-09-20] MEDS: CARBAMIDE PEROXIDE 6.5% OTIC 15 ML BOTTLE AS SCH ×2 (11:23→21:33)
[2021-09-20 13:26] LABS: SYPHILIS W/ RPR CONF NON-REACTIVE (NONREACTIVE)
[2021-09-20] MEDS: ATORVASTATIN CA 10 MG TABLET (FP) PO SCH (21:33)
[2021-09-20] MEDS: QUEtiapine FUMARATE 100 MG TABLET (FP) PO SCH (21:33)
[2021-09-20] MEDS: MELATONIN 5 MG TABLETS PO SCH (21:34)
[2021-09-20] MEDS: THIAMINE HCL 100 MG TABLET (FP) PO SCH (21:34)
[2021-09-21] MEDS: ACAMPROSATE CALCIUM 333 MG TABLET.DR PO SCH ×3 (06:31→21:37)
[2021-09-21] MEDS: BICTEGRAV/EMTRICIT/TENOFOV (BIKTARVY) 50-200-25 MG TABLET PO SCH (07:12)
[2021-09-21] MEDS: PRENATAL VITAMINS W/ FOLIC ACID TABLET (FP) PO SCH (10:17)
[2021-09-21] MEDS: ESCITALOPRAM OXALATE 10 MG TABLET PO SCH (10:17)
[2021-09-21] MEDS: amLODIPine BESYLATE 10 MG TABLET (FP) PO SCH (10:17)
[2021-09-21] MEDS: NICOTINE 21 MG/24 HOURS TOPICAL PATCH TD SCH (10:17)
[2021-09-21] MEDS: BUDESONIDE/FORMETEROL FUMARATE 160/4.5 mcg INHALER IH SCH ×2 (10:17→21:36)
[2021-09-21] MEDS: CHLORTHALIDONE 25 MG TABLET PO SCH (10:17)
[2021-09-21] MEDS: CARBAMIDE PEROXIDE 6.5% OTIC 15 ML BOTTLE AS SCH ×2 (10:20→21:36)
[2021-09-21] MEDS: ATORVASTATIN CA 10 MG TABLET (FP) PO SCH (21:35)
[2021-09-21] MEDS: QUEtiapine FUMARATE 100 MG TABLET (FP) PO SCH (21:35)
[2021-09-21] MEDS: THIAMINE HCL 100 MG TABLET (FP) PO SCH (21:35)
[2021-09-21] MEDS: MELATONIN 5 MG TABLETS PO SCH (21:36)
[2021-09-22] MEDS: ACAMPROSATE CALCIUM 333 MG TABLET.DR PO SCH ×3 (06:31→21:24)
[2021-09-22] MEDS: BICTEGRAV/EMTRICIT/TENOFOV (BIKTARVY) 50-200-25 MG TABLET PO SCH (09:13)
[2021-09-22] MEDS: CARBAMIDE PEROXIDE 6.5% OTIC 15 ML BOTTLE AS SCH ×2 (10:13→21:25)
[2021-09-22] MEDS: BUDESONIDE/FORMETEROL FUMARATE 160/4.5 mcg INHALER IH SCH ×2 (10:13→21:24)
[2021-09-22] MEDS: ESCITALOPRAM OXALATE 10 MG TABLET PO SCH (10:13)
[2021-09-22] MEDS: PRENATAL VITAMINS W/ FOLIC ACID TABLET (FP) PO SCH (10:13)
[2021-09-22] MEDS: amLODIPine BESYLATE 10 MG TABLET (FP) PO SCH (10:13)
[2021-09-22] MEDS: NICOTINE 21 MG/24 HOURS TOPICAL PATCH TD SCH (10:13)
[2021-09-22] MEDS: CHLORTHALIDONE 25 MG TABLET PO SCH (10:14)
[2021-09-22] MEDS: hydrOXYzine PAMOATE 25 MG CAPSULE (FP) PO PRN (10:16)
[2021-09-22] MEDS: THIAMINE HCL 100 MG TABLET (FP) PO SCH (21:24)
[2021-09-22] MEDS: ATORVASTATIN CA 10 MG TABLET (FP) PO SCH (21:24)
[2021-09-22] MEDS: QUEtiapine FUMARATE 100 MG TABLET (FP) PO SCH (21:25)
[2021-09-22] MEDS: MELATONIN 5 MG TABLETS PO SCH (21:25)
[2021-09-23] MEDS: ACAMPROSATE CALCIUM 333 MG TABLET.DR PO SCH ×3 (06:28→21:19)
[2021-09-23] MEDS: BICTEGRAV/EMTRICIT/TENOFOV (BIKTARVY) 50-200-25 MG TABLET PO SCH (07:07)
[2021-09-23] MEDS: amLODIPine BESYLATE 10 MG TABLET (FP) PO SCH (10:06)
[2021-09-23] MEDS: ESCITALOPRAM OXALATE 10 MG TABLET PO SCH (10:06)
[2021-09-23] MEDS: PRENATAL VITAMINS W/ FOLIC ACID TABLET (FP) PO SCH (10:06)
[2021-09-23] MEDS: CARBAMIDE PEROXIDE 6.5% OTIC 15 ML BOTTLE AS SCH ×2 (10:06→21:20)
[2021-09-23] MEDS: NICOTINE 21 MG/24 HOURS TOPICAL PATCH TD SCH (10:06)
[2021-09-23] MEDS: BUDESONIDE/FORMETEROL FUMARATE 160/4.5 mcg INHALER IH SCH ×2 (10:06→21:21)
[2021-09-23] MEDS: CHLORTHALIDONE 25 MG TABLET PO SCH (10:06)
[2021-09-23] MEDS: ATORVASTATIN CA 10 MG TABLET (FP) PO SCH (21:19)
[2021-09-23] MEDS: QUEtiapine FUMARATE 100 MG TABLET (FP) PO SCH (21:19)
[2021-09-23] MEDS: MELATONIN 5 MG TABLETS PO SCH (21:20)
[2021-09-23] MEDS: THIAMINE HCL 100 MG TABLET (FP) PO SCH (21:20)
[2021-09-24] MEDS: ACAMPROSATE CALCIUM 333 MG TABLET.DR PO SCH ×3 (07:30→22:05)
[2021-09-24] MEDS: BICTEGRAV/EMTRICIT/TENOFOV (BIKTARVY) 50-200-25 MG TABLET PO SCH (07:31)
[2021-09-24] MEDS: BUDESONIDE/FORMETEROL FUMARATE 160/4.5 mcg INHALER IH SCH ×2 (09:48→22:05)
[2021-09-24] MEDS: amLODIPine BESYLATE 10 MG TABLET (FP) PO SCH (09:48)
[2021-09-24] MEDS: PRENATAL VITAMINS W/ FOLIC ACID TABLET (FP) PO SCH (09:48)
[2021-09-24] MEDS: ESCITALOPRAM OXALATE 10 MG TABLET PO SCH (09:48)
[2021-09-24] MEDS: NICOTINE 21 MG/24 HOURS TOPICAL PATCH TD SCH (09:48)
[2021-09-24] MEDS: CARBAMIDE PEROXIDE 6.5% OTIC 15 ML BOTTLE AS SCH (09:48)
[2021-09-24] MEDS: CHLORTHALIDONE 25 MG TABLET PO SCH (09:49)
[2021-09-24] MEDS: ALBUTEROL SO4 HFA INHALER IH PRN (13:43)
[2021-09-24] MEDS: hydrOXYzine PAMOATE 25 MG CAPSULE (FP) PO PRN (18:08)
[2021-09-24] MEDS: ATORVASTATIN CA 10 MG TABLET (FP) PO SCH (22:05)
[2021-09-24] MEDS: MELATONIN 5 MG TABLETS PO SCH (22:05)
[2021-09-24] MEDS: QUEtiapine FUMARATE 100 MG TABLET (FP) PO SCH (22:05)
[2021-09-24] MEDS: THIAMINE HCL 100 MG TABLET (FP) PO SCH (22:05)
[2021-09-25] MEDS: ALBUTEROL SO4 HFA INHALER IH PRN (06:31)
[2021-09-25] MEDS: ACAMPROSATE CALCIUM 333 MG TABLET.DR PO SCH ×3 (06:33→21:16)
[2021-09-25] MEDS: BICTEGRAV/EMTRICIT/TENOFOV (BIKTARVY) 50-200-25 MG TABLET PO SCH (07:00)
[2021-09-25] MEDS: PRENATAL VITAMINS W/ FOLIC ACID TABLET (FP) PO SCH (09:58)
[2021-09-25] MEDS: ESCITALOPRAM OXALATE 10 MG TABLET PO SCH (09:58)
[2021-09-25] MEDS: amLODIPine BESYLATE 10 MG TABLET (FP) PO SCH (09:58)
[2021-09-25] MEDS: NICOTINE 21 MG/24 HOURS TOPICAL PATCH TD SCH (09:58)
[2021-09-25] MEDS: CHLORTHALIDONE 25 MG TABLET PO SCH (09:58)
[2021-09-25] MEDS: BUDESONIDE/FORMETEROL FUMARATE 160/4.5 mcg INHALER IH SCH ×2 (09:58→21:17)
[2021-09-25] MEDS: hydrOXYzine PAMOATE 25 MG CAPSULE (FP) PO PRN (09:59)
[2021-09-25] MEDS: ATORVASTATIN CA 10 MG TABLET (FP) PO SCH (21:16)
[2021-09-25] MEDS: MELATONIN 5 MG TABLETS PO SCH (21:16)
[2021-09-25] MEDS: QUEtiapine FUMARATE 100 MG TABLET (FP) PO SCH (21:16)
[2021-09-25] MEDS: THIAMINE HCL 100 MG TABLET (FP) PO SCH (21:17)
[2021-09-26] MEDS: ACAMPROSATE CALCIUM 333 MG TABLET.DR PO SCH ×3 (06:10→21:13)
[2021-09-26] MEDS: hydrOXYzine PAMOATE 25 MG CAPSULE (FP) PO PRN (06:11)
[2021-09-26] MEDS: BICTEGRAV/EMTRICIT/TENOFOV (BIKTARVY) 50-200-25 MG TABLET PO SCH (07:11)
[2021-09-26] MEDS: PRENATAL VITAMINS W/ FOLIC ACID TABLET (FP) PO SCH (10:53)
[2021-09-26] MEDS: ESCITALOPRAM OXALATE 10 MG TABLET PO SCH (10:53)
[2021-09-26] MEDS: BUDESONIDE/FORMETEROL FUMARATE 160/4.5 mcg INHALER IH SCH ×2 (10:53→21:14)
[2021-09-26] MEDS: NICOTINE 21 MG/24 HOURS TOPICAL PATCH TD SCH (10:54)
[2021-09-26] MEDS: amLODIPine BESYLATE 10 MG TABLET (FP) PO SCH (10:55)
[2021-09-26] MEDS: CHLORTHALIDONE 25 MG TABLET PO SCH (16:08)
[2021-09-26] MEDS: ATORVASTATIN CA 10 MG TABLET (FP) PO SCH (21:13)
[2021-09-26] MEDS: MELATONIN 5 MG TABLETS PO SCH (21:13)
[2021-09-26] MEDS: THIAMINE HCL 100 MG TABLET (FP) PO SCH (21:13)
[2021-09-26] MEDS: QUEtiapine FUMARATE 100 MG TABLET (FP) PO SCH (21:13)
[2021-09-27] MEDS: ALBUTEROL SO4 HFA INHALER IH PRN (06:42)
[2021-09-27] MEDS: ACAMPROSATE CALCIUM 333 MG TABLET.DR PO SCH ×3 (06:42→21:16)
[2021-09-27] MEDS: BICTEGRAV/EMTRICIT/TENOFOV (BIKTARVY) 50-200-25 MG TABLET PO SCH (07:17)
[2021-09-27] MEDS: ESCITALOPRAM OXALATE 10 MG TABLET PO SCH (09:54)
[2021-09-27] MEDS: amLODIPine BESYLATE 10 MG TABLET (FP) PO SCH (09:54)
[2021-09-27] MEDS: CHLORTHALIDONE 25 MG TABLET PO SCH (09:54)
[2021-09-27] MEDS: PRENATAL VITAMINS W/ FOLIC ACID TABLET (FP) PO SCH (09:54)
[2021-09-27] MEDS: BUDESONIDE/FORMETEROL FUMARATE 160/4.5 mcg INHALER IH SCH ×2 (09:54→21:17)
[2021-09-27] MEDS: NICOTINE 21 MG/24 HOURS TOPICAL PATCH TD SCH (10:49)
[2021-09-27] MEDS: THIAMINE HCL 100 MG TABLET (FP) PO SCH (21:16)
[2021-09-27] MEDS: ATORVASTATIN CA 10 MG TABLET (FP) PO SCH (21:16)
[2021-09-27] MEDS: QUEtiapine FUMARATE 100 MG TABLET (FP) PO SCH (21:16)
[2021-09-27] MEDS: MELATONIN 5 MG TABLETS PO SCH (21:16)
[2021-09-28] MEDS: ACAMPROSATE CALCIUM 333 MG TABLET.DR PO SCH ×3 (06:53→21:11)
[2021-09-28] MEDS: BICTEGRAV/EMTRICIT/TENOFOV (BIKTARVY) 50-200-25 MG TABLET PO SCH (08:27)
[2021-09-28] MEDS: CHLORTHALIDONE 25 MG TABLET PO SCH (10:57)
[2021-09-28] MEDS: ESCITALOPRAM OXALATE 10 MG TABLET PO SCH (10:58)
[2021-09-28] MEDS: amLODIPine BESYLATE 10 MG TABLET (FP) PO SCH (10:58)
[2021-09-28] MEDS: hydrOXYzine PAMOATE 25 MG CAPSULE (FP) PO PRN ×2 (10:59→18:35)
[2021-09-28] MEDS: NICOTINE 21 MG/24 HOURS TOPICAL PATCH TD SCH (11:11)
[2021-09-28] MEDS: BUDESONIDE/FORMETEROL FUMARATE 160/4.5 mcg INHALER IH SCH ×2 (11:11→21:11)
[2021-09-28] MEDS: PRENATAL VITAMINS W/ FOLIC ACID TABLET (FP) PO SCH (11:12)
[2021-09-28] MEDS: ATORVASTATIN CA 10 MG TABLET (FP) PO SCH (21:11)
[2021-09-28] MEDS: THIAMINE HCL 100 MG TABLET (FP) PO SCH (21:11)
[2021-09-28] MEDS: QUEtiapine FUMARATE 100 MG TABLET (FP) PO SCH (21:11)
[2021-09-28] MEDS: MELATONIN 5 MG TABLETS PO SCH (21:11)
[2021-09-29] MEDS: ACAMPROSATE CALCIUM 333 MG TABLET.DR PO SCH (06:31)
[2021-09-29 08:04] VITALS: BP 125/83; PULSE 66; TEMP 97.9
[2021-09-29] MEDS: BICTEGRAV/EMTRICIT/TENOFOV (BIKTARVY) 50-200-25 MG TABLET PO SCH (08:10)
[2021-09-29] MEDS: hydrOXYzine PAMOATE 25 MG CAPSULE (FP) PO PRN (09:43)
[2021-09-29] MEDS: CHLORTHALIDONE 25 MG TABLET PO SCH (09:43)
[2021-09-29] MEDS: NICOTINE 21 MG/24 HOURS TOPICAL PATCH TD SCH (09:44)
[2021-09-29] MEDS: PRENATAL VITAMINS W/ FOLIC ACID TABLET (FP) PO SCH (09:44)
[2021-09-29] MEDS: ESCITALOPRAM OXALATE 10 MG TABLET PO SCH (09:44)
[2021-09-29] MEDS: amLODIPine BESYLATE 10 MG TABLET (FP) PO SCH (09:44)
== END 2021-09-29 09:53 | disposition home or self-care (01) | DRG 772 ==
LOC: YASAS 17:08 → Y5N 09-16 00:15 → Y3W 09-25 17:16
PROVIDERS: ADMIT Allergy & Immunology; ATTEND Surgery
PROC: HZ42ZZZ Group Counseling for Substance Abuse Treatment, Cognitive-Behavioral (ICD-10-PCS; principal; 2021-09-16)
DX: F10.20 Alcohol dependence, uncomplicated (principal); F14.20 Cocaine dependence, uncomplicated; F12.20 Cannabis dependence, uncomplicated; F17.210 Nicotine dependence, cigarettes, uncomplicated; F19.282 Other psychoactive substance dependence with psychoactive substance-induced sleep disorder; F19.24 Other psychoactive substance dependence with psychoactive substance-induced mood disorder; F31.9 Bipolar disorder, unspecified; F43.10 Post-traumatic stress disorder, unspecified; Z21 Asymptomatic human immunodeficiency virus [HIV] infection status; I10 Essential (primary) hypertension; J45.20 Mild intermittent asthma, uncomplicated; Z62.810 Personal history of physical and sexual abuse in childhood
CPT/HCPCS: 36415; 80053; 81003; 85027; 86780; 86803; C9803-CS; U0003; U0005